=== PATIENT | female | born 1995 | race Caucasian/White ===

== ENCOUNTER 2018-02-27 09:46 | Inpatient (IN) | END 2018-03-02 12:55 | disposition home or self-care (01) | DRG 766 ==

== ENCOUNTER 2019-04-17 19:02 | Emergency (ER) | payer OTHER ==
[~2019-04-17] VITALS: Ht 154.9 cm; Wt 91.4 kg
[2019-04-17 19:03] VITALS: Ht 154.9 cm; Wt 91.4 kg
--- NOTE | 2019-04-17 20:32 | ERD ---
ER Documentation Chief Complaint Chief Complaint vaginal spotting x 1 hour. states 7 weeks HPI Patient is a 23 years old 7 weeks female with no known past medical history presenting with vaginal spotting since 1 hour ago and abdominal pain (01/24). Patient reports of urinary frequency/urgency, dysuria and reports being diagnosed by her [employer] with UTI yesterday and has not picked up her antibiotic yet. Patient denies all other review of systems. ROS All systems reviewed and are negative except as per history of present illness. Medications Home Meds No Active Prescriptions or Reported Meds Allergies Allergies: Coded Allergies: No Known Allergy (Unverified , 02/26/18) PMhx/Soc Medical and Surgical Hx: pt denies Medical Hx History of Surgery: Yes (C SECTION X 3) Anesthesia Reaction: No Hx Neurological Disorder: No Hx Respiratory Disorders: No Hx Cardiac Disorders: No Hx Psychiatric Problems: No Hx Miscellaneous Medical Probl: No Hx Alcohol Use: No Hx Substance Use: No Hx Tobacco Use: No FmHx Family History: No diabetes, No coronary disease, No other Physical Exam Vitals Vital Signs Date Temp Pulse Resp B/P (MAP) Pulse Ox O2 O2 Flow FiO2 Time Delivery Rate 04/17/19 98.0 83 18 120/57 97 19:03 (78) Physical Exam Const: No acute distress Head: Atraumatic Eyes: Normal Conjunctiva Resp: Clear to auscultation bilaterally Cardio: Regular rate and rhythm, no murmurs Abd: Soft, mild suprapubic tenderness, non distended. Normal bowel sounds Back: No midline or flank tenderness. Negative CVAT. Ext: No cyanosis, or edema Neur: Awake and alert Psych: Normal Mood and Affect Result Diagram: 04/17/192033 Results 24 hrs Laboratory Tests Test 04/17/19 20:34 White Blood Count 9.5 10^3/ul Red Blood Count 4.50 10^6/ul Hemoglobin 12.8 g/dl Hematocrit 38.6 % Mean Corpuscular Volume 85.8 fl Mean Corpuscular Hemoglobin 28.4 pg Mean Corpuscular Hemoglobin Concent 33.2 g/dl Red Cell Distribution Width 14.2 % Platelet Count 325 10^3/UL Mean Platelet Volume 11.0 fl Immature Granulocytes % 0.800 % Neutrophils % 66.3 % Lymphocytes % 25.4 % Monocytes % 5.2 % Eosinophils % 1.9 % Basophils % 0.4 % Nucleated Red Blood Cells % 0.0 /100WBC Immature Granulocytes # 0.080 10^3/ul Neutrophils # 6.3 10^3/ul Lymphocytes # 2.4 10^3/ul Monocytes # 0.5 10^3/ul Eosinophils # 0.2 10^3/ul Basophils # 0.0 10^3/ul Nucleated Red Blood Cells # 0.0 10^3/ul Urine Color YELLOW Urine Clarity CLOUDY Urine pH 5.0 Urine Specific [place] 1.016 Urine Ketones NEGATIVE mg/dL Urine Nitrite NEGATIVE mg/dL Urine Bilirubin NEGATIVE mg/dL Urine Urobilinogen NEGATIVE mg/dL Urine Leukocyte Esterase 3+ Alexei/ul Urine Microscopic RBC 10 /HPF Urine Microscopic WBC > 182 /HPF Urine Squamous Epithelial Cells FEW /HPF Urine Bacteria FEW /HPF Urine Hemoglobin 2+ mg/dL Urine Glucose NEGATIVE mg/dL Urine Total Protein NEGATIVE mg/dl Beta HCG, Quantitative 08088.0 mIU/ml Procedures/MDM Patient was seen and evaluated for vaginal spotting. Patient's ultrasound shows incidental left ovarian corpus luteum cyst and intrauterine at 6 weeks 0 days. Urinalysis is significant for 2+ blood and leukocyte esterase. Patient's vaginal spotting was most likely secondary to UTI. Stable and ready for discharge. Patient was informed to supervisor chlorine liquefaction antibiotic treatment from pharmacy start CHRISTO. Patient was advised to follow-up with [employer] [facility] for monitoring. No NSAIDs during !!!!! Departure Diagnosis: Primary Impression: UTI (urinary tract infection) in in first trimester Condition: Stable Patient Instructions: Understanding Urinary Tract Infections (UTIs) Referrals: [facility] Additional Instructions: Patient was advised to supervisor chlorine liquefaction antibiotic from the pharmacy for her UTI. Patient advised to return to the ED immediately for new or worsening symptoms. Patient advised to follow up with primary care provider in the next 24-48 hours. Patient verbalized understanding and agrees with treatment plan and course of action. If patient has no primary care they may follow up with [facility] + [facility] [address] [place] [address] or [facility] [address] [place] [address] or [facility] [address] [place] [address] KATARINA ALBA PA-C Apr 17, 2019 20:31
[2019-04-17 22:19] VITALS: BP 116/70; PULSE 79; RESP 18
== END 2019-04-17 22:03 | disposition home or self-care (01) ==
LOC: FTE 19:02
DX: O23.41 Unspecified infection of urinary tract in pregnancy, first trimester (principal); Z3A.01 Less than 8 weeks gestation of pregnancy
CPT/HCPCS: 36415; 76801; 76817; 81001; 84702; 85025; 86900; 86901; Z7502

== ENCOUNTER 2019-05-10 22:37 | Emergency (ER) | payer OTHER ==
[~2019-05-10] VITALS: Ht 154.9 cm; Wt 88.7 kg
[2019-05-10 22:43] VITALS: BP 124/63; PULSE 79; RESP 18; Ht 154.9 cm; Wt 88.7 kg
[2019-05-11] MEDS ORDERED: CEPH-443 PO (01:31)
--- NOTE | 2019-05-13 14:44 | ERD ---
ER Documentation Chief Complaint Chief Complaint painful/frequent urination x 1 week HPI 23yo 10-weeks F presents for dysuria x 1 month. Pt states to have seen her PCP at start of symptoms and was given an antibiotic which she finished 2 weeks ago with no improvement in symptoms. She does not know the name of the antibiotic. She denies pelvic pain, vaginal bleeding, spotting, hematuria, vomiting, fevers, or chills. Notes is compliant and current with all OB visits. She also complains of pain to the right pointer finger x 3 days. Denies discharge, but notes to have been picking at the side of the nail as her mom told her that may help relieve any infection that may be present. She denies numbness or tingling of the affected digit, denies loss ROM or motor function. ROS All systems reviewed and are negative except as per history of present illness. Medications Home Meds Active Scripts Cephalexin* (Keflex*) 500 Mg Capsule, 500 MG PO QID for Paronychia/UTI for 10 Days, #40 CAP Prov:BERT JEFFREY PA-C 05/11/19 Allergies Allergies: Coded Allergies: No Known Allergy (Unverified , 02/26/18) PMhx/Soc History of Surgery: Yes (C SECTION X 3) Anesthesia Reaction: No Hx Neurological Disorder: No Hx Respiratory Disorders: No Hx Cardiac Disorders: No Hx Psychiatric Problems: No Hx Miscellaneous Medical Probl: No Hx Alcohol Use: No Hx Substance Use: No Hx Tobacco Use: No Smoking Status: Never smoker Physical Exam Vitals Vital Signs Date Temp Pulse Resp B/P (MAP) Pulse Ox O2 O2 Flow FiO2 Time Delivery Rate 05/10/19 98.2 79 18 124/63 98 22:43 (83) Physical Exam Gen: Well developed. Well nourished. No acute distress Cardio: Regular rate and rhythm. No murmurs, rubs, or gallops. Resp: No respiratory distress. Normal breath sounds. No wheezes, rales, or rhonchi. Abd: Soft. Non-tender. No guarding, rebound, or rigidity. Non-distended. Extr: Visible edema at the right distal phalynx of the 2nd digit surrounding the lateral nail edge. No fluctuance. Able to wiggle fingers, Radial pulse 2+, cap refill less than 2 seconds, cold rolling machine setter strength 5/5. Back: Full ROM. No CVA tenderness. Neuro: Alert and oriented X 3. Normal speech Psych: Normal mood. Normal affect Results 24 hrs Laboratory Tests Test 05/10/19 23:28 05/10/19 23:31 05/10/19 23:32 Urine Color YELLOW Urine Clarity CLOUDY Urine pH 6.0 Urine Specific [place] 1.026 Urine Ketones TRACE mg/dL Urine Nitrite NEGATIVE mg/dL Urine Bilirubin NEGATIVE mg/dL Urine Urobilinogen NEGATIVE mg/dL Urine Leukocyte Esterase 3+ Alexei/ul Urine Microscopic RBC 6 /HPF Urine Microscopic WBC > 182 /HPF Urine Squamous Epithelial Cells FEW /HPF Urine Bacteria MODERATE /HPF Urine Mucus FEW /HPF Urine Hemoglobin NEGATIVE mg/dL Urine Glucose NEGATIVE mg/dL Urine Total Protein 1+ mg/dl POC Beta HCG, Qualitative POSITIVE Bedside Urine pH (LAB) 6.0 Bedside Urine Protein (LAB) 2+ Bedside Urine Glucose (UA) Negative Bedside Urine Ketones (LAB) Trace Bedside Urine Blood Trace-intact Bedside Urine Nitrite (LAB) Negative Bedside Urine Leukocyte Esterase 2+ (L Procedures/MDM MDM: Pt presents for dysuria x 1 month and right pointer finger swelling x 3 days. Pt is afebrile, no CVA tenderness, very low suspicion for pyelonephritis. Physical exam findings consisted with Paronychia of the right pointer finger, however, at this time no fluctuance and I&D not indicated. Pt counseled regarding warm soaks and antibiotic use. Pt will be treated for both paronychia and UTI with Keflex. Explained to pt that d/t fact she is unable to recall the antibiotic she was placed on previously, it is possible that I am prescribing the same antibiotic that was ineffective for her. I explained to her that if symptoms persist/worsen, develops fevers or back pain, she is to return to ED immediately. Also counseled regarding f/u with PCP and NUCLE[employer] SUPERVISING OPERATOR within next 1-2 days for follow-up. Pt expressed verbal understanding and agreement. At this time she is table for discharge with outpatient management. Departure Diagnosis: Primary Impression: Urinary tract infection Urinary tract infection type: acute cystitis Hematuria presence: without hematuria Qualified Codes: N30.00 - Acute cystitis without hematuria Additional Impression: Paronychia Condition: Stable Patient Instructions: Understanding Urinary Tract Infections (UTIs), Paronychia BERT JEFFREY PA-C May 13, 2019 14:43
== END 2019-05-11 01:41 | disposition home or self-care (01) ==
LOC: FTE 22:37
DX: O23.11 Infections of bladder in pregnancy, first trimester (principal); O99.711 Diseases of the skin and subcutaneous tissue complicating pregnancy, first trimester; L03.011 Cellulitis of right finger; Z3A.10 10 weeks gestation of pregnancy
CPT/HCPCS: 81001; 81003; 81025; Z7502; 99283